=== PATIENT | female | born 1995 | race Hispanic/Latino ===

== ENCOUNTER 2018-01-04 19:22 | Emergency (ER) | payer MEDICAID, SELFPAY ==
[2018-01-04] MEDS ORDERED: SODIUM CHLORIDE 0.9% 1000ML 1,000 ML IV ONE (20:27)
[2018-01-04 20:34] LABS: BASOPHILS % (AUTO) 0.6 % (0.0-5.0); EOSINOPHILS % (AUTO) 2.1 % (0.0-8.0); LYMPHOCYTES % (AUTO) 27.9 % (21.0-51.0); MEAN CORPUSCULAR HEMOGLOBIN 30.4 pg (27.0-33.0); MEAN CORPUSCULAR HGB CONC 34.8 g/dL (32.0-36.0); MEAN CORPUSCULAR VOLUME 87.2 fL (79-99); MONOCYTES % (AUTO) 7.1 % (3.0-13.0); NEUTROPHILS % (AUTO) 62.3 % (40.0-77.0); PLATELET COUNT (AUTO) 251 K/uL (130-400); RED BLOOD CELL COUNT(AUTO) 4.58 MIL/uL (4.00-5.50); RED CELL DISTRIBUTION WIDTH 13.5 % (11.0-15.5); WHITE BLOOD COUNT (AUTO) 6.7 K/uL (4.8-10.8)
[2018-01-04 20:35] LABS: APPEARANCE,URINE Clear (CLEAR); BILIRUBIN,URINE Negative (NEGATIVE); COLOR,URINE Yellow (YELLOW); GLUCOSE, URINE (UA) Negative (NEGATIVE); KETONES,URINE Trace mg/dL (NEGATIVE); LEUKOCYTE ESTERASE ,URINE Negative (NEGATIVE); NITRATE,URINE Negative (NEGATIVE); OCCULT BLOOD,URINE Negative (NEGATIVE); PH,URINE 6.5 (5.0-8.0); PROTEIN,URINE Negative (NEGATIVE)
[2018-01-04 20:41] LABS: CREATININE 0.7 mg/dL (0.5-1.5); POTASSIUM 3.9 mmol/L (3.5-5.1)
[2018-01-04 21:12] LABS: ALBUMIN 3.6 g/dL (3.5-5.0); BILIRUBIN,TOTAL 0.3 mg/dL (0.2-1.0); TOTAL PROTEIN, SERUM 7.5 g/dL (6.0-8.3)
== END 2018-01-04 22:37 | disposition home or self-care (01) ==
LOC: EDH 19:22
DX: O26.891 Other specified pregnancy related conditions, first trimester (principal); O99.611 Diseases of the digestive system complicating pregnancy, first trimester; K59.00 Constipation, unspecified; Z3A.01 Less than 8 weeks gestation of pregnancy
CPT/HCPCS: 36415; 76817; 80053; 81003; 83690; 84702; 85025; 86900; 86901; 99285; J7030

== ENCOUNTER 2018-01-17 23:26 | Emergency (ER) | payer MEDICAID | END 2018-01-18 00:08 | disposition home or self-care (01) | LOC: EDH 23:26 | DX: O26.891 Other specified pregnancy related conditions, first trimester (principal); K02.9 Dental caries, unspecified; Z90.49 Acquired absence of other specified parts of digestive tract; Z98.890 Other specified postprocedural states; Z79.899 Other long term (current) drug therapy; Z3A.08 8 weeks gestation of pregnancy ==

== ENCOUNTER 2018-10-28 08:32 | Emergency (ER) | payer OTHER, MEDICAID ==
[2018-10-28] MEDS ORDERED: KETOROLAC TROMETHAMINE 60 MG/2 ML VIAL ONE (09:38)
[2018-10-28] MEDS ORDERED: CYCLOBENZAPRINE HCL 10 MG TABLET ONE (09:39)
== END 2018-10-28 09:57 | disposition home or self-care (01) ==
LOC: EDH 08:32
DX: M54.5 Low back pain (principal); Z90.49 Acquired absence of other specified parts of digestive tract; W18.39XA Other fall on same level, initial encounter; Y93.01 Activity, walking, marching and hiking; Y92.89 Other specified places as the place of occurrence of the external cause; Y99.8 Other external cause status
CPT/HCPCS: 72170; 81025; 96372; 99285; J1885

== ENCOUNTER → 2019-02-28 | Outpatient (CLI) | payer OTHER | END | disposition home or self-care (01) | LOC: RAH 13:28 | PROVIDERS: ATTEND Family Medicine | DX: G43.909 Migraine, unspecified, not intractable, without status migrainosus (principal) | CPT/HCPCS: 70450 ==

== ENCOUNTER → 2021-05-27 | Outpatient (CLI) | payer OTHER | END | disposition home or self-care (01) | LOC: RAH 08:08 | PROVIDERS: ATTEND Internal Medicine | DX: N91.2 Amenorrhea, unspecified (principal) | CPT/HCPCS: 76856 ==

== ENCOUNTER 2023-05-01 16:46 | Emergency (ER) | payer OTHER ==
[~2023-05-01] VITALS: Ht 157.5 cm; Wt 97.5 kg
[2023-05-01] MEDS ORDERED: IBUPROFEN 600 MG TABLET PO ONE (17:30)
[2023-05-01 17:54] LABS: APPEARANCE,URINE CLEAR (CLEAR); BILIRUBIN,URINE NEGATIVE (NEGATIVE); GLUCOSE, URINE (UA) NEGATIVE (NEGATIVE); KETONES,URINE NEGATIVE (NEGATIVE); LEUKOCYTE ESTERASE ,URINE NEGATIVE Leu/uL (NEGATIVE); NITRATE,URINE NEGATIVE (NEGATIVE); OCCULT BLOOD,URINE SMALL (NEGATIVE); PROTEIN,URINE NEGATIVE (NEGATIVE); UROBILINOGEN,URINE 0.2 mg/dL (0.2-1.0)
[2023-05-01 17:56] LABS: ADD UA MICROSCOPIC YES; COLOR,URINE LIGHT-YELLOW (YELLOW)
[2023-05-01 17:59] LABS: MUCUS,URINE RARE LPF (None Seen); RBC,URINE 0-1 /HPF (0-1); SARS-CoV-2, RNA, NAAT NEGATIVE SARS CoV-2 (NEGATIVE); SQUAMOUS EPITHELIAL CELL,UR RARE /HPF (0-2); WBC,URINE 0-1 /HPF (0-1)
[2023-05-01 18:04] LABS: RAPID GROUP A STREP negative (NEGATIVE)
[2023-05-01 18:09] LABS: INFLUENZA TYPE A Negative For Type A (NEGATIVE); INFLUENZA TYPE B Negative For Type B (NEGATIVE)
[2023-05-01] MEDS ORDERED: ACETAMINOPHEN 500 MG TABLET PO ONE (19:30)
[2023-05-01 19:49] VITALS: TEMP 101.6
[2023-05-01 20:08] LABS: BASOPHILS # (AUTO) 0.02 K/uL (0.00-0.20); BASOPHILS % (AUTO) 0.2 % (0.0-5.0); HEMATOCRIT 43.9 % (36-48); IMMATURE GRANULOCYTE ABSOLUTE 0.02 K/uL (0-1); LYMPHOCYTES # (AUTO) 0.5 K/uL (1.0-4.8); LYMPHOCYTES % (AUTO) 6.3 % (21.0-51.0); MEAN CORPUSCULAR HEMOGLOBIN 29.7 pg (27.0-33.0); MEAN CORPUSCULAR HGB CONC 35.1 g/dL (32.0-36.0); MEAN CORPUSCULAR VOLUME 84.6 fL (79-99); MONOCYTES # (AUTO) 0.2 K/uL (0.1-1.0); MONOCYTES % (AUTO) 2.2 % (3.0-13.0); NEUTROPHILS # (AUTO) 7.4 K/uL (1.8-7.7); NEUTROPHILS % (AUTO) 91.1 % (40.0-77.0); PLATELET COUNT (AUTO) 203 K/uL (130-400); RED BLOOD CELL COUNT(AUTO) 5.19 MIL/uL (4.00-5.50); RED CELL DISTRIBUTION WIDTH 12.5 % (11.0-15.5); WHITE BLOOD COUNT (AUTO) 8.1 K/uL (4.8-10.8)
[2023-05-01 20:18] LABS: CREATININE 0.6 mg/dL (0.5-1.5); POTASSIUM 3.3 mmol/L (3.5-5.1)
[2023-05-01 20:22] LABS: ALBUMIN 4.1 g/dL (3.5-5.0); BILIRUBIN,TOTAL 0.9 mg/dL (0.2-1.0); TOTAL PROTEIN, SERUM 7.7 g/dL (6.0-8.3)
[2023-05-01] MEDS ORDERED: LACTATED RINGERS 1000ML 1,000 ML IV ONE (21:00)
[2023-05-01 21:28] VITALS: BP 120/69; PULSE 105; RESP 17; O2SAT 100
[2023-05-01] MEDS ORDERED: IBUP-2071 PO (21:29)
== END 2023-05-01 21:56 | disposition home or self-care (01) ==
LOC: EDH 16:46
DX: B34.9 Viral infection, unspecified (principal); E86.0 Dehydration; Z20.822 Contact with and (suspected) exposure to COVID-19; Z90.49 Acquired absence of other specified parts of digestive tract; Z98.890 Other specified postprocedural states
CPT/HCPCS: 99283; 87635; 84443; 80053; 85025; 87880; 87804 ×2; 81001; 36415; J7120

== ENCOUNTER → 2024-07-25 | Outpatient (CLI) | payer OTHER ==
[~2024-07-25] MED LIST: GADOTERATE MEGLUMINE 10 MMOL/20 ML VIAL IV ONE; IBUP-2071 PO
--- NOTE | 2024-07-25 11:56 | HMCIMG ---
MR BRAIN WWO CON HISTORY: Dizziness and giddiness COMPARISON: None TECHNIQUE: MRI of the brain was performed utilizing multiple pulse sequences in axial, coronal and sagittal planes. Patient was not given contrast through intravenous route. FINDINGS: The ventricles and extraventricular CSF spaces are nondilated for patient's age. There is no midline shift, mass effect or herniation. No subacute hemorrhage is seen. No MR evidence of acute infarct is seen in the diffusion weighted images. Cerebellar tonsils are in normal position. No evidence of mucoperiosteal thickening is seen of the visualized paranasal sinuses. There are bilateral maxillary sinusitis with mucoperiosteal thickening. IMPRESSION: 1. No MR evidence of acute infarct is seen in the diffusion weighted images. Sinusitis.
== END | disposition home or self-care (01) ==
LOC: RAH 08:11
PROVIDERS: ATTEND Family Medicine
DX: J32.9 Chronic sinusitis, unspecified (principal); R42 Dizziness and giddiness; G43.109 Migraine with aura, not intractable, without status migrainosus; H54.7 Unspecified visual loss
CPT/HCPCS: 70553; A9575

== ENCOUNTER → 2025-01-20 | Outpatient (CLI) | payer OTHER ==
[~2025-01-20] MED LIST changes: -GADOTERATE MEGLUMINE 10 MMOL/20 ML VIAL IV ONE
--- NOTE | 2025-01-20 15:49 | HMCIMG ---
EXAMINATION: ULTRASOUND OF THE THYROID. CLINICAL HISTORY: Iodine deficiency related diffuse goiter. Thyromegaly. COMPARISON: None provided. TECHNIQUE: Transverse and longitudinal images were obtained through both lobes and the isthmus of the thyroid. FINDINGS: The thyroid gland is normal in caliber with homogenous tissue echotexture. The right thyroid lobe measures 4.7 x 1.4 x 1.4 cm and the left thyroid lobe measures 4.0 x 1.4 x 1.8 cm in the craniocaudal, AP, and transverse dimensions respectively. The isthmus measures 0.3 cm in AP dimension. Right lobe: There is a cystic nodule that measures 0.2 x 0.1 x 0.2 cm at the mid pole (TR1). There is a cystic nodule that measures 0.2 x 0.2 x 0.3 cm at the mid pole (TR1). Left lobe: There are no focal lesions. No significantly enlarged lymph nodes. IMPRESSION: Nodules in the right lobe of the thyroid. TI-RADS follow up recommendations: TR1: no FNA required TR2: no FNA required TR3: more than or equal to 1.5 cm follow up, more than or equal to 2.5 cm FNA follow up: 1, 3 and 5 years TR4: more than or equal to 1.0 cm follow up, more than or equal to 1.5 cm FNA follow up: 1, 2, 3 and 5 years TR5: more than or equal to 0.5 cm follow up, more than or equal to 1.0 cm FNA annual follow up for up to 5 years /[place]
== END | disposition home or self-care (01) ==
LOC: RAH 08:55
PROVIDERS: ATTEND Family Medicine
DX: E04.1 Nontoxic single thyroid nodule (principal)
CPT/HCPCS: 76536